=== PATIENT | female | born 1940 | race Caucasian/White ===

== ENCOUNTER 2025-02-18 23:32 | Inpatient (IN) | payer MEDICARE, SELFPAY ==
[2025-02-18 14:54] VITALS: BP 102/65
[2025-02-18 15:57] VITALS: BP 141/77
[2025-02-18 16:00] VITALS: BP 135/71
[2025-02-18 16:29] LABS: Hematocrit 29.7 % (37.0-47.0); Hemoglobin 10.1 g/dL (12.0-16.0); Mean Corp Hgb Conc. 34.0 g/dL (33.0-37.0); Mean Corpuscular Volume 94.9 fL (81.0-99.0); Nucleated Red Blood Cells % 0 %; Platelet Count 337 10^3/uL (130-400); Red Cell Dist. Width 12.5 % (11.5-14.5)
[2025-02-18 16:38] LABS: INR 0.87; PT 12.3 Sec (11.4-14.6)
[2025-02-18 16:45] LABS: ALT (SGPT) < 10 U/L (0-35); AST (SGOT) 16 U/L (14-36); Albumin 4.0 g/dl (3.5-5.0); Alkaline Phosphatase 69 U/L (38-126); Blood Urea Nitrogen 27 mg/dl (7-17); Calcium 9.9 mg/dl (8.4-10.2); Carbon Dioxide 26 mmol/L (22-30); Chloride 102 mmol/L (98-107); Glucose 95 mg/dl (70-99); Potassium 3.3 mmol/L (3.5-5.1); Sodium 136 mmol/L (135-145); Total Protein 6.9 g/dl (6.3-8.2); eGFR > 60.00
[2025-02-18 17:00] VITALS: BP 116/57
[2025-02-18 18:40] VITALS: BP 119/66
--- NOTE | 2025-02-18 22:11 | ED.GENMED ---
History of Present Illness
General
Chief Complaint: Vaginal Bleeding
Source: patient and significant other
Exam Limitations: none
Time Seen by Provider: 02/18/25 15:55
History of Present Illness
History of Present Illness:
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
bleeding. Patient reports that the bleeding started this morning and has been heavy. She reports she has seen some small blood clots. Patient denies abdominal pain. Patient denies lightheadedness, dizziness, chest pain, shortness of breath.
Patient notes that she has been having diarrhea recently. She reports that she is being evaluated for it and stool studies are pending. Patient contacted her oncologist at [facility] [place] Dr. Lucretia Cruz who referred her to the emergency department for
further evaluation and treatment. Patient denies she is anticoagulated. Patient notes that she does have a remote history of hysterectomy.
Past History
Past History
ED Past Medical History: Cancer (peritoneal)
ED Past Surgical History: Cholecystectomy, Gynecological (Hysterectomy) and Orthopedic (TKA)
Social History
Tobacco: Non-smoker
Alcohol: None
Drug: None
Personal:
Review of Systems
Review of Systems
Allergies reviewed?: No
All Other Systems: Not applicable
Constitutional: Reports no symptoms
EENT: Reports no symptoms
Respiratory: Reports no symptoms
Cardiac: Reports no symptoms
ABD/GI: Reports no symptoms; Denies abdominal pain
: Reports bleeding
Musculoskeletal: Reports no symptoms
Skin: Reports no symptoms
Neurological: Reports no symptoms
Endocrine: Reports no symptoms
Hematologic/Lymphatic: Reports no symptoms
Psychiatric: Reports no symptoms
Phy Exam
General Physical Exam
General Presentation: well appearing and no apparent distress
General Skin: warm and dry
General Habitus: normal
General Mental: alert
General Hydration: appears well hydrated
ENT Exam
ENT Exam: EOMI, pharynx normal, neck supple and normocephalic
Eye Exam
Eye Exam: PERRL, cornea clear and conjunctiva normal
Cardiovascular Exam
Cardiovascular Exam: regular rate/rhythm, no edema, no murmur and normal peripheral pulses
Pulmonary Exam
Pulmonary Exam: lungs clear, no respiratory distress, no rales, no crackles, no rhonchi, no stridor, no wheezing and no cough
Gastrointestinal Exam
Gastrointestinal Exam: normal bowel sounds, non tender, soft, no organomegaly, no pulsatile mass and non distended
Genitourinary Exam Female
Exam Female: other (moderate vaginal bleeding, no blood clots noted)
Neurological Exam
Neurological Exam: alert, oriented x3, no motor deficits and speech normal
Musculoskeletal Exam
Musculoskeletal Exam: full ROM and no edema
Skin Exam
Skin Exam: normal color, warm/dry, no rash and no petechia
Psychiatric Exam
Psychiatric Exam: normal mood/affect
Course
Orders/Labs/Results
Orders:
Orders
02/18/25 16:14
Type And Crossmatch [Type+Screen] Urgent
Complete Blood Count/With Diff Urgent
Comprehensive Metabolic Panel Urgent
02/18/25 16:16
Prothrombin Time Urgent
02/18/25 17:23
ABO2 Urgent
BBK Wristband Number:
Associate notified that ABO2 has been ordered: [id number]
Date: 02/18/25
Time: 16:47
Data Services Developer ID: [id number]
02/18/25 17:29
CT Abd/pelvis W Iv Cont Urgent
Comment:
Reason For Exam: ovarian/peritoneal ca hx hysterectomy, vag bleed
Abnormal Lab Results
02/18/25
16:14
RBC 3.13 L 10^6/uL
(4.20-5.40)
Hgb 10.1 L g/dL
(12.0-16.0)
Hct 29.7 L %
(37.0-47.0)
MCH 32.3 H pg
(27.0-31.0)
Absolute Lymphs (auto) 0.2 L 10^3/uL
(1.2-3.4)
Neutrophils % 87.6 H %
(42.2-75.2)
Lymphocytes % 3.2 L %
(20.5-51.1)
Potassium 3.3 L mmol/L
(3.5-5.1)
BUN 27 H mg/dl
(7-17)
02/18/25 16:14
02/18/25 16:14
Vital Signs
Initial and Last Documented VS:
Initial Vital Signs
Temp Pulse Resp BP Pulse Ox
98.0 F 106 16 102/65 99
02/18/25 14:54 02/18/25 14:54 02/18/25 14:54 02/18/25 14:54 02/18/25 14:54
Last Documented Vital Signs
Temp Pulse Resp BP Pulse Ox
98.0 F 99 15 119/66 98
02/18/25 14:54 02/18/25 18:45 02/18/25 18:45 02/18/25 18:40 02/18/25 22:12
*Pulse Oximetry
SaO2: 98
Oxygen Mode of Delivery: Room air
Patient hypoxic: no
*Critical Care Note
Total Time (30-74mins, 75-104mins- exclusive of procedures): Not Applicable
Update Note
Update Note:
Patient is an 84-year-old female with past medical history of peritoneal cancer for which she sees oncology at [place] who presents to the emergency department for evaluation of vaginal bleeding which she describes as heavy for the past day. Patient
denies abdominal pain, lightheadedness, dizziness. On arrival, patient's vital signs are stable, she is afebrile. On exam, patient is well-appearing, she is in no acute distress, she has no significant abdominal tenderness, she has moderate
vaginal bleeding without passage of clots. Labs were obtained and are notable for a hemoglobin of 10.1, mild hypokalemia to 3.3, mildly elevated BUN of 27, the remainder of the patient's labs are nonactionable. CT of the abdomen and pelvis does
demonstrate a large complex pelvic mass with invasion into the bladder and rectum. I am suspicious that this is related to the patient's vaginal bleeding today. I had a very long conversation with the patient and her regarding whether the
patient would like to be transferred to [facility] [place] or stay and be admitted to [facility]. Patient and her would prefer to be admitted to [facility]. Will admit for oncology as well as likely gynecological oncology consultations.
Patient signed out to the hospitalist without complication.
ED Attending Note
-
Portions of this chart may have been created with voice recognition software.� Occasional wrong word or��sound alike� substitutions may have occurred due to the inherent limitations of voice recognition software.
Discharge Plan
Departure
Patient Disposition: Admit
Date of Disposition: 02/18/25
Time of Disposition: 22:15
Presentation/result/management discussed w/ accepting MD/DO: Hospitalist
Patient with high blood pressure during this ER visit?: No
Condition: Fair
Covid-19: Not Applicable
Discharge Problem:
Abnormal vaginal bleeding, Pelvic mass
Referrals:
Silviano Amor MD [Family Provider, Internal Medicine]
Interventions
Interventions:
*General Assessment Last Done: 02/18/25 16:38
*Neglect/Abuse Screening Last Done: 02/18/25 16:21
*ED- Fall Risk Assessment Last Done: 02/18/25 16:38
*ED COVID-19 Vaccine History Last Done: 02/18/25 16:38
ED-Female Genitourinary Assessment Last Done: 02/18/25 16:20
Discharge Date and Time
Print Language: SYRIAN
--- NOTE | 2025-02-18 23:31 | HPS.HSE ---
Family Physician
-
Family Physician: Silviano Amor
Chief Complaint
-
Vaginal Bleeding
History of Present Illness
Patient is an 84y F with PMH significant for peritoneal / ? ovarian carcinoma who has been on treatment and followed at [place] for the past 8 years who presents to ED complaining of vaginal bleeding. History obtained from patient and her .
Patient reports significant bleeding from the vaginal area over the past 2 days. She estimates using about 8 pads per day. She also notes grossly bloody appearing urine. She reports intermittent, crampy lower abdominal pain - though none today /
at present. She denies any fevers / chills. No N/V.
Patient is currently taking cyclophosphamide daily for treatment of her peritoneal carcinomatosis. Patient / state that she had recent imaging at [place] about 3-4 weeks ago which was reportedly 'stable'.
Patient states that she has had issues with urinary and fecal incontinence which has been ongoing for about 8-12 months.
She states that she was seen by a Colorectal physician ([facility]) 4 days ago for constipation and she had no bleeding noted at that time.
Medical History
Past Medical History
Past Medical History: Reports Other
Additional Past Medical History:
Peritoneal Carcinomatosis / ? Ovarian Cancer on Treatment x 8 years
Diverticular Disease
Past Surgical History: Reports Other
Additional Past Surgical History:
TKA
Hysterectomy
Cholecystectomy
Partial Bowel Resection
Social History
Tobacco: Non-smoker
Alcohol: None
Drug: None
Personal:
Living: With Family
Family History
Family History: Not pertinent
Allergies / Home Medications
Allergies reflects when Allergies were last updated in [facility].
Home Medications with original date entered in Yo
Allergy/Medication List:
Patient does not know her current medications.
She has pills with her in a pill minder - but no Rx bottles or medication list.
If medication reconciliation has not been performed, why?: Medication List N/A
Review of Systems
-
History Source: Patient and Family
A 12 point ROS was completed and negative except as noted: Yes
Constitutional: Reports Fatigue; Denies Fever or Chills
Respiratory: Denies Cough or Trouble Breathing
Cardiac: Denies Chest Pain or Palpitations
Abdomen/GI: Reports Abdominal Pain and Other (fecal incontinence); Denies Nausea or Vomiting
: Reports Incontinence, Bleeding and Other (Vaginal bleeding)
Musculoskeletal: Denies Edema
Neurological: Denies Dizzy or Headache
Physical Exam
Vital Signs
Vital Signs
Temp Pulse Resp BP Pulse Ox
98.0 F 99 15 119/66 98
02/18/25 14:54 02/18/25 18:45 02/18/25 18:45 02/18/25 18:40 02/18/25 22:12
Physical Exam
General: Other (Frail, cachectic 84y F in no acute distress.)
HEENT: Other (Dry MM. Neck supple.)
Respiratory: Clear; No Wheezes, Rales or Rhonchi
Cardiac: S1/S2 and Regular Rhythm; No Murmur
GI: Soft, Non Distended, Normal Bowel Sounds and Other (Firmness in lower abdomen with mild tenderness. No rebound / guarding.)
Musculoskeletal: No Clubbing, No Cyanosis and No Edema
Neuro: AO x 3
Laboratory Results
-
02/18/25 16:14
02/18/25 16:14
Laboratory Results
PT 12.3 Sec (11.4-14.6) 02/18/25 16:16
INR 0.87 02/18/25 16:16
Total Bilirubin 0.5 mg/dl (0.2-1.3) 02/18/25 16:14
AST 16 U/L (14-36) 02/18/25 16:14
ALT < 10 U/L (0-35) 02/18/25 16:14
Alkaline Phosphatase 69 U/L (38-126) 02/18/25 16:14
Impression/Plan
-
A/P: Patient is an 84y F with PMH significant for peritoneal carcinomatosis on chemo and followed at [place] who presents to ED complaining of vaginal bleeding x 2 days.
Peritoneal Carcinomatosis / Ovarian Cancer
Vaginal Bleeding
Acute Blood Loss Anemia secondary to the above
Local Mass Effect with Invasion of Bladder / Rectum
Bilateral Hydronephrosis / Ureteral Obstruction due to Malignancy
Diminished Functional Capacity
- Admit for further evaluation and treatment.
- Patient / family not clear on wishes re: plan of care.
- Has been on palliative treatment for 8 years and now with locally invasive disease and associated complications.
- Will follow H&H and transfuse if Hgb < 7 or hemodynamic instability.
- Will ask [facility] to evaluate and discuss options for intervention / palliation.
- Send for most recent records / treatment plan from [place].
- Follow renal function. Check US in AM.
- ? Perc nephrostomy, ureteral stents, etc if necessary.
- Ongoing discussions with patient / family re: plan of care. Would certainly be hospice appropriate.
- Reviewed transfer to [place] this evening; however, patient and are not amenable to transfer at this time.
- Need formal med rec in the AM and then resume meds if appropriate.
DVT Prophylaxis: SCDs
Code Status: DNR
[2025-02-19] VITALS (10 sets, daily range): BP systolic 101–165; BP diastolic 55–101
--- NOTE | 2025-02-19 01:06 | PTCARENOTE ---
Handoff monitored patient unable to be documented at the time of pt admit. Intervention performed by this RN with witness by Jen Dover RN.
[2025-02-19] MEDS: LR 1000 IV (01:27)
[2025-02-19 01:57] LABS: Hematocrit 25.1 % (37.0-47.0); Hemoglobin 8.9 g/dL (12.0-16.0)
[2025-02-19 06:56] LABS: ALT (SGPT) < 10 U/L (0-35); AST (SGOT) 14 U/L (14-36); Albumin 3.2 g/dl (3.5-5.0); Alkaline Phosphatase 56 U/L (38-126); Blood Urea Nitrogen 24 mg/dl (7-17); Calcium 9.4 mg/dl (8.4-10.2); Carbon Dioxide 28 mmol/L (22-30); Chloride 106 mmol/L (98-107); Glucose 94 mg/dl (70-99); Potassium 3.2 mmol/L (3.5-5.1); Sodium 137 mmol/L (135-145); Total Protein 5.5 g/dl (6.3-8.2); eGFR > 60.00
[2025-02-19 07:41] LABS: Hematocrit 26.4 % (37.0-47.0); Hemoglobin 8.9 g/dL (12.0-16.0); Mean Corp Hgb Conc. 33.7 g/dL (33.0-37.0); Mean Corpuscular Volume 94.3 fL (81.0-99.0); Platelet Count 272 10^3/uL (130-400); Red Cell Dist. Width 12.5 % (11.5-14.5)
--- NOTE | 2025-02-19 08:29 | PTCARENOTE ---
Educated patient and spouse on NPO status. Pt and spouse stated that she had most of her tests and she should be allowed to eat. Again attempted to educate and patient's spouse stated 'well I'm just going to let her eat.' RN advised to please
cooperate with our care. Spouse asking if ordered ultrasound can be done 'first thing' and can the doctors come see her now. RN advised the doctors will come as their schedules allow. Assessment, care and VS as charted.
--- NOTE | 2025-02-19 09:20 | W.CON.GYNONC ---
Consultation
-
Performing Provider: Scott Valles
Chief Complaint
-
Vaginal bleeding
History of Present Illness
84-year-old woman who is presenting to [facility] with vaginal bleeding. 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 She is under care of Dr. Maria Eugenia Cruz and
medical oncology at [facility]
Patient received carboplatin for 6 cycles September 12, 2001 any 2 through February 08, 2022.
Patient was on maintenance letrozole from March 01, 2022 through January 2023 after which she had progression of disease
Patient received trametinib January 16, 2023 through February 24, 2023, this was stopped due to adverse effects and intolerance
February 25, 2023 she resumed letrozole. Until early 2023.
November 2023 she resumed trametinib 0.5 mg daily stopped March 26.
Patient had progression of disease in mediastinum, received palliative radiation to chest nodes over 12 days in May 2024. Patient had a visit with Dr. Cruz January 21, 2025, she has been on metronomic oral cyclophosphamide 50 mg daily. She is
complaining of many issues including lower abdominal pain cramping, taking tramadol twice a day. She has a prescription for muscle relaxant for fibromyalgia and declines a trial of Flexeril. Patient has had stable dysphagia to liquids and has been
evaluated in [place] with modified barium swallow, showing mild to moderate oral and pharyngeal dysphagia as well as apparent esophageal component. She has been seen by ENT and gastroenterology at [facility].
Medical History
Past Medical History
Additional Past Medical History:
Hypertension, arthropathy, hypercholesterolemia, frequent UTI, allergic rhinitis, squamous cell carcinoma of the skin, palpitations, headache, irritable bowel syndrome, gastroesophageal reflux disease, diverticulitis large intestine status post
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
Additional Past Surgical History:
Past surgical history is significant for [facility] 1985 for menorrhagia and endometriosis, laminectomy L4-L5, cholecystectomy, history of appendectomy, abdominoplasty, breast reduction, colectomy in 2007 for recurrent diverticulitis, cystoscopy 2013 in
2016, abdominal biopsy 2021, EGD 2024, transoral biopsy multiple block procedures 2024, knee replacement surgery August 01
Social History
Unable to obtain full social history at this time due to: Other (Quit smoking 39 years ago she has a 79-ivpy-oyos history of smoking)
Family History
Family History: Other (Maternal breast cancer age 40, daughter with breast cancer age 45, maternal aunt with ovarian cancer, father with prostate cancer)
Allergies
Allergies reflect when allergies were last updated in [facility]. Bee pollen, seasonal allergies, sulfa antibiotics, nitrofurantoin
No Known Allergies Allergy (Unverified 02/18/25 14:57)
Physical Exam
Vital Signs / I&O
Vitals
Temp Pulse Resp BP Pulse Ox
98.6 F 96 14 124/75 96
02/19/25 07:30 02/19/25 08:00 02/19/25 04:00 02/19/25 08:00 02/19/25 08:00
Results
-
02/19/25 06:20
02/19/25 06:20
[facility]
[address] [place] [id number]
[phone]
Patient Name: DELANEY GARG
: 1940
Unit Number: [id number]
Age/Sex: 84/F
Patient
Location: EMR
Order Provider: Kisha Pierce PA-C
Exam Service Date: 02/18/25

Diagnostic Imaging Report
SignedOrder #:[id number]
Exams: CT Abd/pelvis W Iv Cont
PROCEDURES: CT Abd/pelvis W Iv Cont
CLINICAL INDICATION: Ovarian/peritoneal cancer. Hysterectomy. Vaginal bleeding.
TECHNIQUE: A CT examination of the abdomen and pelvis was performed following the administration of nonionic intravenous contrast. Oral contrast was not administered. Coronal and sagittal reformatted images were obtained. Automatic exposure control
radiation dose reduction technology was utilized.
COMPARISON: None.
FINDINGS:
CHEST: Bibasilar scarring and/or atelectasis.
ABDOMEN:
Multiple hepatic cysts. Surgically absent gallbladder. Mild prominence of the extrahepatic bile ducts, likely related to the previous cholecystectomy. 3 cm diverticulum arising from the second portion of the duodenum. The pancreas, spleen, and
bilateral adrenal glands are unremarkable. Right renal cysts with the largest measuring 5.8 cm in the upper pole. Bilateral hydronephrosis, left greater than right. Short segment of tortuous proximal left ureter with urothelial thickening. Bilateral
ureteral dilatation, left greater than right.
Trace abdominal ascites.
3 cm soft tissue nodule with central calcification in the right upper quadrant anterior abdominal wall. Smaller nodules further inferiorly in the right anterior abdominal wall.
The abdominal aorta is normal in caliber and contains moderate calcified atherosclerosis.
Surgically absent appendix. Colonic diverticulosis, without evidence for acute diverticulitis. No bowel obstruction.
PELVIS: Large complex solid and cystic pelvic mass measuring up to 13.8 cm in size, which appears to directly invade the rectum and the urinary bladder. Significant left posterolateral urinary bladder wall thickening and irregular soft tissue
attenuation within the urinary bladder lumen. Postoperative changes of the pelvis with calcifications and suture material. Surgically absent uterus. Soft tissue nodules in the anterior lower abdomen/pelvis with calcifications.
The distal left ureter appears to be obstructed by the pelvic mass. The distal right ureter is obstructed by the urinary bladder wall thickening and soft tissue attenuation in the bladder lumen.
SKELETON: Chronic degenerative changes of the spine, bilateral sacroiliac joints, hips, and symphysis pubis. Mild lumbar dextroscoliosis.
IMPRESSION:
Large complex solid and cystic mass in the left lateral and posterior pelvis in keeping with the provided history of ovarian/peritoneal cancer. Complex examination and direct correlation with the patient's previous outside imaging is recommended.
The mass appears to directly invade the urinary bladder and rectum. Bilateral hydronephrosis, left greater than right, with malignant soft tissue in the pelvis obstructing the bilateral ureters.
Other calcified soft tissue nodules in the anterior lower abdomen/pelvis and in the right upper quadrant abdominal wall probably representing metastatic implants.
Electronically signed by Jeremy Mayo, 02/18/2025 8:53 PM
[employer] Dose Report: Up-to-date CT equipment and radiation dose reduction techniques were employed. CTDIvol: 7.1 - 7.2 mGy. DLP: 681 mGy-cm.
Dictated By: Marah Mayo DO
Dictated Date & Time: 02/18/252036
Impression / Plan
-
According to the impression of Dr. Cruz most recently at the end of January CA125 continues to decline since starting medication and scans have been generally stable. She had a break while she was in [place]. The fatigue is partially attributed to
oral Cytoxan. Plan was to repeat another CT of chest abdomen and pelvis unfortunately we do not have prior imaging to compare this to. As of back then there was no progression of disease. They had lengthy discussion regarding her GI symptoms
which are likely related to radiation to the mediastinum, patient was recommended to increasing omeprazole. As well as consideration of dietary adjustments. She does have some deconditioning and has been referred to physical therapy for lower
extremity strength buildup but she is too weak and fatigued. She also has ongoing incontinence and has been recommended to consider pelvic floor therapy for urinary issues. After an extensive discussion there are no easy fixes for several of these
issues and the patient had requested consultation with palliative care for management of some of the symptoms.
During this admission I do not feel that there is any need for repeat biopsy, if the patient has significant vaginal bleeding causing her anemia. Consideration can be given to palliative radiation to the pelvis. It may be reasonable to request GI
consultation to see whether there is indeed invasion of the colon. Also urology consultation may be needed to assess whether there is involvement of bladder and ureter with pelvic mass. An MRI of the pelvis may be helpful for better visualization
of the extent of disease in the pelvis. Consider consulting radiation oncology after these tests are completed.
--- NOTE | 2025-02-19 10:16 | CM ---
CM following for discharge planning. Pt admitted to IMU with vaginal bleeding, history of ovarian CA treated at [facility].
Pt requesting palliative care consult for symptom management.
Plan: CM will continue to follow to coordinate all discharge planning needs identified during hospitalization.
[2025-02-19] MEDS: KCL 270 MEQ IV (10:32)
[2025-02-19] MEDS: MORPHINE SULFATE 1 MG IV (11:19)
--- NOTE | 2025-02-19 11:20 | CON.ONC ---
Consultation
-
Date Consultation Requested: 02/19/25
Date Consultation Performed: 02/19/25
Requesting Provider: Dr. Eirc Díaz
Performing Provider: Dr. Gris Villalobos
Reason for Consultation: Peritoneal Carcinomatosis, Vaginal Bleeding, Ureteral Obstruction
Impression
Impression
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
vaginal bleeding
anemia
bleeding evaluation in [address] Hughes showed normal [place] and all multimer of Willebrand factor antigen are present in normal amounts, ristocetin cofactor activity, coag factor IX activity, and fibrinogen activity
Plan
Plan
continue cyclophosphamide
recommend direct radiographic comparison to imaging 2-3 weeks ago, current CT on admission w/o comparison
check iron studies
transfuse prn
OP follow up with primary oncologist for further management
Patient History
History of Present Illness
84yo F with papillary serous carcinoma who presented to with vaginal bleeding. She reports significant bleeding for the past 2 days prompting her to seek further evaluation in ER. She also reports intermittent abdominal cramping. Her initial
evaluation was notable for WBC 5.9, Hgb 10.1, platelet count 337,000 with normal PT/INR, renal function, and LFTs. Her rCT ab/pelvis with IVC showed a Large complex solid and cystic mass in the left lateral and posterior pelvis in keeping with the
provided history of ovarian/peritoneal cancer. The mass appears to directly invade the urinary bladder and rectum. Bilateral hydronephrosis, left greater than right, with malignant soft tissue in the pelvis obstructing the bilateral ureters. Other
calcified soft tissue nodules in the anterior lower abdomen/pelvis and in the right upper quadrant abdominal wall probably representing metastatic implants. She has been admitted, started on IVF and electrolyte repletion.
In brief, pt is known to [facility] for management of her papillary serous carcinoma. Her PET at diagnosis showed omental and peritoneal implants. She was initially treated with carbo followed by letrozole maintenance rather than surgery. She
was then treated with trametinib after progression of disease in 2022. She received XRT to chest nodes in May 2024. She has most recently been treated with cyclophosphamide with her [place] medical oncologists, last evaluation 01/21/2025. Her Ca
125 has declined since starting cyclophosphamide and she reports that restaging done several weeks ago was 'stable.'
She reports hematoma following breast reduction and bowel resection. She had 2 children w/o bleeding complications. She also had other surgeries without bleeding complications including ELICIA. Her bleeding evaluation in [address] Hughes showed
normal [place] and all multimer of Willebrand factor antigen are present in normal amounts, ristocetin cofactor activity, coag factor IX activity, and fibrinogen activity.
She reports fatigue, dysphagia, and urinary incontinence. She continues to have vaginal bleeding.
Past-Medical/Surgical History
PMH endometriosis, IBS, GERD, recurrent UTIs, osteopenia
PSH hysterectomy for menorrhagia, abdominoplasty, breast reduction, appendectomy, laminectomy L5/S1, cholecystectomy, sigmoid colon resection of recurrent diverticulitis, tonsillectomy, knee replacement
Family breast cancer daughter. maternal family with ovarian and breast cancer. father prostate cancer
Social former smoker, rare ETOH, denies recreational drugs, retired. Lives with
Patient Medication
�Medication �Instructions �Recorded �Confirmed �Last Taken �Type
cyclophosphamide 50 mg capsule 50 mg PO DAILY Cancer 02/19/25 02/19/25 02/18/25 History
diazepam 5 mg tablet 5 mg PO TIDPRN PRN anxiety 02/19/25 02/19/25 Unknown History
fenofibrate 160 mg tablet 160 mg PO DAILY High Cholesterol 02/19/25 02/19/25 02/18/25 History
methenamine hippurate 1 gram tablet 1 g PO BID Urinary Issue 02/19/25 02/19/25 02/18/25 History
metoprolol succinate 25 mg 12.5 mg PO BID Blood Pressure 02/19/25 02/19/25 02/18/25 History
tablet,extended release 24 hr
omeprazole 20 mg capsule,delayed 20 mg PO BID Gastrointestinal Issue 02/19/25 02/19/25 02/18/25 History
release
ondansetron HCl 8 mg tablet 8 mg PO Q8HPRN PRN nausea 02/19/25 02/19/25 Unknown History
tramadol 50 mg tablet 50 mg PO TIDPRN PRN Fibromyalgia 02/19/25 02/19/25 Unknown History
pain
Active Medications
Generic Name Dose Route Start Last Admin
Trade Name Freq PRN Reason Stop Dose Admin
Acetaminophen 650 mg 02/19/25 01:11
Acetaminophen 325 Mg Tablet PO 03/19/25 01:10
Q4HPRN PRN
Mild Pain / Temp > 101
Diazepam 5 mg 02/19/25 10:36
Diazepam 5 Mg Tablet PO 03/19/25 10:35
TIDPRN PRN
anxiety
Fenofibrate 145 mg 02/20/25 08:00
Fenofibrate 145 Mg Tablet PO 03/20/25 07:59
DAILY NAHUN
Hydromorphone HCl 0.5 mg 02/19/25 01:11
Hydromorphone 0.5 Mg/0.5 Ml Syringe IV 03/05/25 01:10
Q4HPRN PRN
Severe Pain
Lactated Ringer's 1,000 mls @ 100 mls/hr 02/19/25 01:11 02/19/25 01:27
Lr IV 1,000 mls
.Q10H NAHUN Administration
Potassium Chloride 40 meq/ 270 mls @ 67.5 mls/hr 02/19/25 08:25 02/19/25 10:32
Sodium Chloride IV 02/19/25 12:24 270 mls
NOW STA Administration
Methenamine Hippurate 1 gram 02/19/25 20:00
Methenamine Hippurate 1 Gram Tablet PO
BID NAHUN
Metoprolol Succinate 12.5 mg 02/19/25 20:00
Metoprolol 25 Mg Extended Release Tablet PO 03/19/25 19:59
BID NAHUN
Ondansetron HCl 4 mg 02/19/25 01:11
Ondansetron 4 Mg/2 Ml Vial IV 03/19/25 01:10
Q6HPRN PRN
nausea and vomiting
Pantoprazole Sodium 40 mg 02/20/25 08:00
Pantoprazole 40 Mg Delayed Release Tablet PO 03/20/25 07:59
DAILY NAHUN
Tramadol HCl 50 mg 02/19/25 10:36
Tramadol Hcl 50 Mg Tablet PO 03/19/25 10:35
TIDPRN PRN
Fibromyalgia pain
Review of Systems
-
ROS is notable for HPI, otherwise negative
Physical Exam
-
General: No Apparent Distress
HEENT: Moist Mucous Membranes; Negative Jaundice
Pulmonary: Other (unlabored)
GI: Soft
Extremities: Pulses Present
Skin: Warm
Psych: Calm
Labs
Lab Results
WBC 4.4 10^3/uL (4.8-10.8) L 02/19/25 06:20
RBC 2.80 10^6/uL (4.20-5.40) L 02/19/25 06:20
Hgb 8.9 g/dL (12.0-16.0) L 02/19/25 06:20
Hct 26.4 % (37.0-47.0) L 02/19/25 06:20
MCV 94.3 fL (81.0-99.0) 02/19/25 06:20
MCH 31.8 pg (27.0-31.0) H 02/19/25 06:20
MCHC 33.7 g/dL (33.0-37.0) 02/19/25 06:20
RDW 12.5 % (11.5-14.5) 02/19/25 06:20
Plt Count 272 10^3/uL (130-400) 02/19/25 06:20
MPV 10.1 fL (7.4-10.4) 02/19/25 06:20
Abs Immat Gran (auto) 0.0 10^3/uL (0-0.05) 02/18/25 16:14
Absolute Neuts (auto) 5.1 10^3/uL (1.4-6.5) 02/18/25 16:14
Absolute Lymphs (auto) 0.2 10^3/uL (1.2-3.4) L 02/18/25 16:14
Absolute Monos (auto) 0.5 10^3/uL (0.1-0.6) 02/18/25 16:14
Absolute Eos (auto) 0.0 10^3/uL (0-0.7) 02/18/25 16:14
Absolute Basos (auto) 0.0 10^3/uL (0-0.2) 02/18/25 16:14
Immature Gran % 0.5 % (0-0.5) 02/18/25 16:14
Neutrophils % 87.6 % (42.2-75.2) H 02/18/25 16:14
Lymphocytes % 3.2 % (20.5-51.1) L 02/18/25 16:14
Monocytes % 7.7 % (1.7-9.3) 02/18/25 16:14
Eosinophils % 0.7 % (0-6) 02/18/25 16:14
Basophils % 0.3 % (0-2) 02/18/25 16:14
Creatinine 0.6 mg/dL (0.6-1.0) 02/19/25 06:20
Vital Signs
Vital Signs
Temp Pulse Resp BP Pulse Ox
98.1 F 98 14 141/81 99
02/19/25 11:16 02/19/25 10:01 02/19/25 04:00 02/19/25 10:01 02/19/25 10:00
[2025-02-19] MEDS: VALIUM 5 MG PO (11:55)
[2025-02-19] MEDS: DILAUDID 0.5 MG IV ×2 (11:55→13:29)
[2025-02-19 12:11] LABS: Reticulocyte Count 1.2 % (0.4-2.8)
--- NOTE | 2025-02-19 12:11 | PTCARENOTE ---
Patient given Morphine for burning vaginal pain 10/10 pain. Patient then called 20 minutes later stating she is in 'agony' and she cannot stand this pain anymore. Pt writhing in pain back and forth in pain. TT to [facility] ordered and
given, see MAR. Pt's spouse on the phone with one of their [facility] doctors and stating 'they are not doing anything for her here.'
--- NOTE | 2025-02-19 12:16 | CONS.URO ---
Consultation
-
Date/Time Consultation Performed: 02/19/25 1620
Performing Provider: [place]
Reason for Consultation: ureteral obtruction
Medical History
History of Present Illness
84-year-old woman diagnosed with ovarian cancer 8 years ago, per daughter -- under care of Dr. Josephine Cruz and medical oncology at [facility]
Patient has received several systemic therapies, yet had progression of disease in mediastinum, received palliative radiation to chest nodes in May 2024.
Patient had a visit with Dr. Cruz January 21, 2025,
She is complaining of many issues including lower abdominal pain/cramping and vaginal bleeding.
Past Medical History
Past Surgical History: Other (TKA, Hysterectomy, Cholecystectomy, Partial Bowel Resection)
Allergies/Home Medications
Allergies
Allergy/AdvReac Type Severity Reaction Status Date / Time
No Known Allergies Allergy Unverified 02/18/25 14:57
Home Medications
�Medication �Instructions �Recorded �Confirmed �Type
cyclophosphamide 50 mg capsule 50 mg PO DAILY Cancer 02/19/25 02/19/25 History
diazepam 5 mg tablet 5 mg PO TIDPRN PRN anxiety 02/19/25 02/19/25 History
fenofibrate 160 mg tablet 160 mg PO DAILY High Cholesterol 02/19/25 02/19/25 History
methenamine hippurate 1 gram tablet 1 g PO BID Urinary Issue 02/19/25 02/19/25 History
metoprolol succinate 25 mg 12.5 mg PO BID Blood Pressure 02/19/25 02/19/25 History
tablet,extended release 24 hr
omeprazole 20 mg capsule,delayed 20 mg PO BID Gastrointestinal Issue 02/19/25 02/19/25 History
release
ondansetron HCl 8 mg tablet 8 mg PO Q8HPRN PRN nausea 02/19/25 02/19/25 History
tramadol 50 mg tablet 50 mg PO TIDPRN PRN Fibromyalgia 02/19/25 02/19/25 History
pain
Physical Exam
Vital Signs
Vital Signs
Temp Pulse Resp BP Pulse Ox
98.1 F 98 14 141/81 99
02/19/25 11:16 02/19/25 10:01 02/19/25 04:00 02/19/25 10:01 02/19/25 10:00
Lab / Testing Results
Laboratory Results
02/19/25 06:20
02/19/25 06:20
Physical Exam
elderly, cachectic female
agitated, trying to get OOB to attempt to move bowels -- 2 family members at bedside attempting to restrain/help her
Assessment / Plan
-
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
Pelvic pressure on vagina, bladder and rectum with bleeding per
Rec: patient would be best served by returning to her medical oncologist's hospital; if she elects to remain at [facility], the IRad could be enlisted to place bilateral percutaneous nephrostomy tubes [retrograde ureteraal stents would be difficult to
place and invariable fail in cases of malignant obstruction]
Data Reviewed
-
CT Scan: Image personally visualized and interpreted
Old Records: Reviewed
--- NOTE | 2025-02-19 12:32 | W.PN.HOSP.TC ---
Today's Communication/Plan
-
Transferred to [facility] pending
Continue with pain control
Continue to trend hemoglobin
And stop IV fluids
Diet advanced
Assessment / Plan
Assessment / Plan
General: cachetic, mild distress due to discomfort/pain
HEENT: Other (Dry MM. Neck supple.)
Respiratory: Clear; No Wheezes, Rales or Rhonchi
Cardiac: S1/S2 and Regular Rhythm; No Murmur
GI: Soft, Non Distended, Normal Bowel Sounds
Musculoskeletal: No Clubbing, No Cyanosis and No Edema
Neuro: AO x 3
A/P: Patient is an 84y F with PMH significant for peritoneal carcinomatosis on chemo and followed at [facility] who presents to ED complaining of vaginal bleeding x 2 days.
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
Vaginal Bleeding
Acute Blood Loss Anemia secondary to the above
Anemia likely secondary to chemotherapy unclear baseline
Local Mass Effect with Invasion of Bladder / Rectum
Bilateral Hydronephrosis / Ureteral Obstruction due to Malignancy
Diminished Functional Capacity
- Has been on palliative treatment for 8 years and now with locally invasive disease and associated complications.
- Will follow H&H and transfuse if Hgb < 7 or hemodynamic instability. Current Hgb at 8.9.
- Send for most recent records / treatment plan from [facility].
- ? Perc nephrostomy, ureteral stents, etc if necessary. Urology also consulted. Fortunately creatinine at 0.6.
- Discussed case with patient in detail with Dr. Scott Valles on 02/19 -and patient might require palliative radiation to stop further bleeding. No acute intervention would be performed by him to stop bleeding surgically. Could be tumor invasion
causing the bleeding and may need inpatient radiation which unfortunately will require higher level of care..
- Above discussion was discussed with patient, spouse and daughter all in agreement for transfer. Patient was accepted by Dr. Valenzuela for transfer. Transfer paperwork on chart. Excepted as emergent transfer.
- Patient case was also discussed with her primary oncologist Dr. Cruz on 02/19. Continue with symptomatic management. Palliative radiation might help. Family deciding currently of palliative radiation versus taking patient home on hospice
for pain control however, has not made decision. Will continue with current plan of awaiting transfer to [facility].
- Will adjust pain medication. Oxy for moderate. Dilaudid for severe pain.
- Continue to trend hemoglobin.
- Continue with PPI twice daily.
Severe anxiety
- On diazepam 5 mg 3 times daily as needed
Hyperlipidemia
-On fenofibrate
Primary hypertension
-Continue with Toprol with hold parameters
Hypokalemia
-IV KCL with discomfort.
-replete po
Underweight
-encourage po intake
Irritable bowel syndrome
Diverticulitis status post sigmoid colon resection
Fibromyalgia
Dysphagia
Dysphonia
Continue with PPI twice daily
Continue with Pepcid
DVT Prophylaxis: SCDs in setting of vaginal bleeding
Code Status: DNR
Overall prognosis guarded
Discussed multiple times with patient's spouse and daughter for prolonged period of time.
I spent a total of 120 minutes with the patient or on the floor. More than 50% of this time involved multiple discussion with specialty, family and coordination of care.
Anticipated Discharge: > 48 hours
Subjective/Interval History
-
Date of Service: February 19, 2025
Patient remains with vaginal bleeding
Also stating of burning sensation in the groin region
Objective Data
-
Labs:
Laboratory Results
02/19/25 02/19/25
01:46 06:20
WBC 4.4 L
Hgb 8.9 L 8.9 L
Hct 25.1 L 26.4 L
Plt Count 272
Sodium 137
Potassium 3.2 L
Chloride 106
Carbon Dioxide 28
BUN 24 H
Creatinine 0.6
Glucose 94
Calcium 9.4
Total Bilirubin 0.4
AST 14
ALT < 10
Alkaline Phosphatase 56
Vital Signs:
Vital Signs
Temp Pulse Resp BP Pulse Ox
98.1 F 106 14 141/81 99
02/19/25 11:16 02/19/25 12:00 02/19/25 04:00 02/19/25 10:01 02/19/25 10:00
--- NOTE | 2025-02-19 12:42 | PTCARENOTE ---
Patient's spouse came to nurses station to express that he would like to speak to the hospitalist again. He is not sure that he wants to send the patient to [place] and also wants to discuss hospice. made aware and advised he will be back up
but it will be a little bit. Updated spouse and he stated well 'I have a problem with a little bit, I have decisions to make.' Again, reemphasized to spouse that the doctor will be up when he can.
[2025-02-19 12:49] LABS: Iron 74 ug/dl (37-170); Total Iron Binding Capacity 234 ug/dl (265-497)
[2025-02-19 13:12] LABS: Ferritin 342.0 ng/ml (11.1-264.0)
[2025-02-19] MEDS: DILAUDID 1 MG IV ×4 (14:31→23:18)
[2025-02-19] MEDS: LR IV (14:45)
[2025-02-19] MEDS: ZOFRAN 4 MG IV (16:24)
--- NOTE | 2025-02-19 17:07 | PTCARENOTE ---
Patient's spouse spoke to oncology team at [facility] again and now is agreeable to hospice. TT to and made aware.
--- NOTE | 2025-02-19 17:11 | W.PN.UPDATE ---
Update Note
Progress Note Update
Discussed with patient and spouse once again in details. Also discussed with patient oncologist Dr. Cruz once again in details. Spouse has decided after discussing with patient and family to transition towards hospice. In the interim spouse
agreed for patient to be comfortable and agreed for pain medication. Patient remains in significant discomfort from tumor related cancer pain and wants the patient to be comfortable. Spouse does not want patient to be transferred to [facility]
[place] for further aggressive treatment and management. Spouse also relayed that information to patient primary oncologist Dr. Cruz who was also in agreement for patient to be transition towards hospice. Hospice has been consulted.
Transfer center called and was was updated to cancel transfer. In the interim comfort measure orders were ordered. DC labs.
[2025-02-19] MEDS: VALIUM INJECTION 2 MG IV (23:07)
[2025-02-19] MEDS: DESENEX/MITRAZOL/ZEASORB 1 APPLIC TOPICAL (23:25)
[2025-02-20] MEDS: DILAUDID 1 MG IV ×5 (01:53→10:42)
[2025-02-20] MEDS: ATARAX 10 MG PO (01:56)
--- NOTE | 2025-02-20 06:01 | W.PN.GYNONC ---
Today's Communication
-
transition to hospice care at home
Impression / Plan
-
According to the impression of Dr. Cruz most recently at the end of January CA125 continues to decline since starting medication and scans have been generally stable. She had a break while she was in [place]. The fatigue is partially attributed to
oral Cytoxan. Plan was to repeat another CT of chest abdomen and pelvis unfortunately we do not have prior imaging to compare this to. As of back then there was no progression of disease. They had lengthy discussion regarding her GI symptoms
which are likely related to radiation to the mediastinum, patient was recommended to increasing omeprazole. As well as consideration of dietary adjustments. She does have some deconditioning and has been referred to physical therapy for lower
extremity strength buildup but she is too weak and fatigued. She also has ongoing incontinence and has been recommended to consider pelvic floor therapy for urinary issues. After an extensive discussion there are no easy fixes for several of these
issues and the patient had requested consultation with palliative care for management of some of the symptoms.
During this admission I do not feel that there is any need for repeat biopsy, if the patient has significant vaginal bleeding causing her anemia. Consideration can be given to palliative radiation to the pelvis. It may be reasonable to request GI
consultation to see whether there is indeed invasion of the colon. Also urology consultation may be needed to assess whether there is involvement of bladder and ureter with pelvic mass. An MRI of the pelvis may be helpful for better visualization
of the extent of disease in the pelvis. Consider consulting radiation oncology after these tests are completed.
02/20/2025
I had a lengthy conversation with Dr Cruz her Medical Oncologist at [facility] and she also has discussed the patient's options with her .It appears that patient and her are choosing a more palliative approach going forward and want
to avoid any aggressive treatments and measures.
They are transitioning to hospice at home at this time.
They are aware of what options are potentially available to them
I appreciate the opportunity to see her and participate in some of her care.
Scott Valles MD
[facility]
[phone]
Subjective / Interval History
-
patient remains in some pain and continues to have spotting per vagina
options of treatments including aggressive and palliative approaches have been reviewed
Objective Data
-
Lab Results:
02/19/25 20:00
02/19/25 06:20
Physical Exam
Vital Signs / I&O
Vitals
Temp Pulse Resp BP Pulse Ox
97.9 F 106 16 129/73 96
02/19/25 20:16 02/19/25 20:16 02/19/25 20:16 02/19/25 20:16 02/19/25 21:59
[2025-02-20] MEDS: VALIUM INJECTION 2 MG IV ×3 (06:04→11:30)
[2025-02-20] MEDS: HALDOL 1 MG IV (06:48)
--- NOTE | 2025-02-20 07:27 | W.PN.URO.CBU ---
Today's Communication / Plan
-
with move to palliative care, will sign off
Assessment / Plan
-
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
Pelvic pressure on vagina, bladder and rectum with bleeding per
Diagnosis
-
Date of Service: February 20, 2025
-
Patient Diagnosis:
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
Pelvic pressure on vagina, bladder and rectum with bleeding per
Objective
-
Vital Signs
Temp Pulse Resp BP Pulse Ox
97.9 F 106 16 129/73 96
02/19/25 20:16 02/19/25 20:16 02/19/25 20:16 02/19/25 20:16 02/19/25 21:59
Intake and Output
02/19/25 02/20/25 02/21/25
06:59 06:59 06:59
Intake Total 120 / 120
Balance 120 / 120
Intake:
Oral fluids 120 / 120
Laboratory Results
02/19/25 20:00
02/19/25 06:20
Physical Exam
-
General - well developed, well nourished, no acute distress
Chest - clear bilaterally
Abdomen - soft, non-tender, positive bowel sounds, no CVAT, no incisional pain or distention
Genitalia - normal
Rectal - normal
Skin - warm & dry with no rash
Neuro - AOx3, no motor deficits
Extremities - no clubbing, no cyanosis, no edema
Incision - clean, dry
Dressing - clean, dry, intact
[2025-02-20 07:39] VITALS: BP 143/75
[2025-02-20] MEDS: DESENEX/MITRAZOL/ZEASORB 1 APPLIC TOPICAL (07:57)
--- NOTE | 2025-02-20 08:41 | HOSPNOTE ---
Addendum entered by Charu Rose RN 02/20/25 09:11:
After speaking with Primary RN, Spouse, and attending, we will be admitting patient inpatient hospice today.
Original Note:
Referral received. Patient address is out of our service area. Will give [facility] a notification that this referral is coming and if possible to sign onto hospice today. CM and Attending updated. Hospice will sign off.
--- NOTE | 2025-02-20 10:15 | W.PN.HOSP.TC ---
Today's Communication/Plan
-
dc to [facility]
Assessment / Plan
Assessment / Plan
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
and followed at [place] who presents to ED complaining of vaginal bleeding x 2 days. Patient stated of significant bleeding via vaginal canal. Also complaining of severe pressure in the lower abdomen. Patient was earlier seen by telemedicine by
her primary oncologist who recommended patient to come to the ER. Patient hemoglobin was trended and did not require a transfusion. Discussed case with patient in detail with Dr. Scott Valles on 02/19 -and patient might require palliative radiation
to stop further bleeding. No acute intervention would be performed by him to stop bleeding surgically. Could be tumor invasion causing the bleeding and may need inpatient radiation which unfortunately will require higher level of care.. Above
discussion was discussed with patient, spouse and daughter all in agreement for transfer. Patient was accepted by Dr. Valenzuela for transfer. Patient case was also discussed with her primary oncologist Dr. Cruz on 02/19. Continue with
symptomatic management. Palliative radiation might help. Family deciding currently of palliative radiation versus taking patient home on hospice for pain control however, has not made decision. Will continue with current plan of awaiting transfer
to [facility]. Patient remained with persistent pain. Patient did not want to go any further aggressive procedures, treatment and management. Patient also with bilateral hydronephrosis and ureteral bilaterally obstructed due to malignancy. Urology was
consulted and recommended bilateral nephrostomy tube as a last resort. Patient did not want any aggressive measures. and family knew the option of palliative radiation. Patient remained persistent pain and to make patient comfortable
after discussing among family members and with patient primary oncologist and multiple meetings throughout the day on 02/19/2025 family decided to make patient comfortable. Patient was started on comfort measures on 02/19/2025 with plan to transition
patient to [facility].
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
Vaginal Bleeding
Acute Blood Loss Anemia secondary to the above
Anemia likely secondary to chemotherapy unclear baseline
Local Mass Effect with Invasion of Bladder / Rectum
Bilateral Hydronephrosis / Ureteral Obstruction due to Malignancy
Diminished Functional Capacity
Severe anxiety
Hyperlipidemia
Primary hypertension
Hypokalemia
Underweight
Irritable bowel syndrome
Diverticulitis status post sigmoid colon resection
Fibromyalgia
Dysphagia
Dysphonia
Continue with PPI twice daily
Continue with Pepcid
Plan
Currently on comfort measures with plan to transition to [facility]
More than 30 minutes spent in discharge including
Final examination of the patient
Summarizing hospital stay
Instructions for continuing care to all relevant caregivers
Preparation of discharge records, prescriptions, and referral forms
Total time spent (in minutes): 52
Anticipated Discharge: Today
Subjective/Interval History
-
Date of Service: February 20, 2025
Received pain medication IV related to significant pain. Currently resting in bed comfortably
Objective Data
-
Vital Signs:
Vital Signs
Temp Pulse Resp BP Pulse Ox
97.7 F 111 16 143/75 97
02/20/25 07:39 02/20/25 07:39 02/20/25 07:39 02/20/25 07:39 02/20/25 07:39
I&O
02/19/25 02/20/25 02/21/25
06:59 06:59 06:59
Intake Total 120 / 120
Balance 120 / 120
Physical Exam
-
General: No Apparent Distress and Comfortable
HEENT: Nose Appears Normal and Ears Appear Normal
Respiratory: Non Labored Respirations
Neuro: Other (Sleeping)
Psych: Calm
[2025-02-20] MEDS: ROBINUL 0.2 MG IV (10:42)
--- NOTE | 2025-02-20 11:13 | PTCARENOTE ---
Pt confused and trying to get OOB despite medication regimen. MD made aware, medications adjusted. This RN attempted to place a suresh but was unsuccessful, holding off for now. Education and emotional support provided by this RN, MD, and load haul dump operator
to family. angry at bedside requiring additional education. Decision changed from home with VN to GIP, no new orders at this time.
--- NOTE | 2025-02-20 11:39 | HOSPNOTE ---
Met with patients and daughters to review hospice care, reviewed [facility] vs. home hospice and the hospice philosophy, understanding stated. Hospice consents signed by patients Baljit. Patient to be [facility] hospice for management of severe
pain and agitation requiring IV medications. Patient required seven PRN doses of IV Dilaudid in the past 24 hours and two PRN doses of IV Valium. Reviewed with patients family what changes may occur as patient continues to decline. Patients daughter
Danna requested extra psychosocial support, contacted hospice SW.
--- NOTE | 2025-02-20 11:49 | W.DCSUMMARY ---
Discharge Summary
Discharge Data
Date of Admission: 02/18/25
Date of Discharge: 02/20/25
-
Pending Results: No
Hospital Course
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
followed at [place] who presents to ED complaining of vaginal bleeding x 2 days. Patient stated of significant bleeding via vaginal canal. Also complaining of severe pressure in the lower abdomen. Patient was earlier seen by telemedicine by her
primary oncologist who recommended patient to come to the ER. Patient hemoglobin was trended and did not require a transfusion. Discussed case with patient in detail with Dr. Scott Valles on 02/19 -and patient might require palliative radiation to
stop further bleeding. No acute intervention would be performed by him to stop bleeding surgically. Could be tumor invasion causing the bleeding and may need inpatient radiation which unfortunately will require higher level of care.. Above
discussion was discussed with patient, spouse and daughter all in agreement for transfer. Patient was accepted by Dr. Valenzuela for transfer. Patient case was also discussed with her primary oncologist Dr. Cruz on 02/19. Continue with
symptomatic management. Palliative radiation might help. Family deciding currently of palliative radiation versus taking patient home on hospice for pain control however, has not made decision. Will continue with current plan of awaiting transfer
to [facility]. Patient remained with persistent pain. Patient did not want to go any further aggressive procedures, treatment and management. Patient also with bilateral hydronephrosis and ureteral bilaterally obstructed due to malignancy. Urology was
consulted and recommended bilateral nephrostomy tube as a last resort. Patient did not want any aggressive measures. and family knew the option of palliative radiation. Patient remained persistent pain and to make patient comfortable
after discussing among family members and with patient primary oncologist and multiple meetings throughout the day on 02/19/2025 family decided to make patient comfortable. Patient was started on comfort measures on 02/19/2025 with plan to transition
patient to [facility].
Discharge Plan
-
Patient Disposition: Hospice - Inpatient DH
Discharge Orders:
Discharge Patient (As Directed); Ordered 02/20/25
Ordered By: Guru Salgado
Discharge Date and Time
Print Language: GABONESE
== END 2025-02-20 12:16 | disposition hospice, inpatient (51) | DRG 375 ==
LOC: 2 NORTH 23:32
PROVIDERS: ADMITTING PHYSICIAN Hospitalist; ATTENDING PHYSICIAN Hospitalist; CONSULT PHYSICIAN Obstetrics & Gynecology Gynecologic Oncology; CONSULT PHYSICIAN Specialist; EMERGENCY PHYSICIAN Emergency Medicine; FAMILY PHYSICIAN Internal Medicine; OTHER PHYSICIAN Internal Medicine Hematology & Oncology
DX: C78.6 Secondary malignant neoplasm of retroperitoneum and peritoneum (principal); C56.9 Malignant neoplasm of unspecified ovary; N13.1 Hydronephrosis with ureteral stricture, not elsewhere classified; D62 Acute posthemorrhagic anemia; R64 Cachexia; I10 Essential (primary) hypertension; R13.10 Dysphagia, unspecified; E78.00 Pure hypercholesterolemia, unspecified; F41.9 Anxiety disorder, unspecified; R49.0 Dysphonia; R63.6 Underweight; K58.9 Irritable bowel syndrome, unspecified; M79.7 Fibromyalgia; M41.9 Scoliosis, unspecified; M85.80 Other specified disorders of bone density and structure, unspecified site; N28.1 Cyst of kidney, acquired; R32 Unspecified urinary incontinence; Z66 Do not resuscitate; Z80.3 Family history of malignant neoplasm of breast; Z85.828 Personal history of other malignant neoplasm of skin; Z86.14 Personal history of Methicillin resistant Staphylococcus aureus infection; Z87.440 Personal history of urinary (tract) infections; Z87.891 Personal history of nicotine dependence; Z90.49 Acquired absence of other specified parts of digestive tract; Z90.710 Acquired absence of both cervix and uterus; Z96.659 Presence of unspecified artificial knee joint; Z68.20 Body mass index [BMI] 20.0-20.9, adult; K21.9 Gastro-esophageal reflux disease without esophagitis; Z79.899 Other long term (current) drug therapy
CPT/HCPCS: 74177; 76770; 80053; 82248; 82728; 83540; 83550; 85014; 85018; 85025; 85027; 85045; 85610; 86850; 86900; 86901; 99285; Q9967

== ENCOUNTER 2025-02-20 12:18 | Inpatient (IN) | payer OTHER, SELFPAY ==
--- NOTE | 2025-02-20 11:46 | HOSPNOTE ---
Met with patients and daughters to review hospice care, reviewed [facility] vs. home hospice and the hospice philosophy, understanding stated. Hospice consents signed by patients Baljit. Patient to be [facility] hospice for management of severe
pain and agitation requiring IV medications. Patient required seven PRN doses of IV Dilaudid in the past 24 hours and two PRN doses of IV Valium. Reviewed with patients family what changes may occur as patient continues to decline. Patients daughter
Danna requested extra psychosocial support, contacted hospice SW.
--- NOTE | 2025-02-20 11:48 | ADM.HSP ---
Admission - Hospice
History of Present Illness
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
followed at [place] who presents to ED complaining of vaginal bleeding x 2 days. Patient stated of significant bleeding via vaginal canal. Also complaining of severe pressure in the lower abdomen. Patient was earlier seen by telemedicine by her
primary oncologist who recommended patient to come to the ER. Patient hemoglobin was trended and did not require a transfusion. Discussed case with patient in detail with Dr. Scott Valles on 02/19 -and patient might require palliative radiation to
stop further bleeding. No acute intervention would be performed by him to stop bleeding surgically. Could be tumor invasion causing the bleeding and may need inpatient radiation which unfortunately will require higher level of care.. Above
discussion was discussed with patient, spouse and daughter all in agreement for transfer. Patient was accepted by Dr. Valenzuela for transfer. Patient case was also discussed with her primary oncologist Dr. Cruz on 02/19. Continue with
symptomatic management. Palliative radiation might help. Will continue with current plan of awaiting transfer to [facility]. Patient remained with persistent pain. Patient did not want to go any further aggressive procedures, treatment and
management. Patient also with bilateral hydronephrosis and ureteral bilaterally obstructed due to malignancy. Urology was consulted and recommended bilateral nephrostomy tube as a last resort. Patient did not want any aggressive measures.
and family knew the option of palliative radiation. Patient remained persistent pain and to make patient comfortable after discussing among family members and with patient primary oncologist and multiple meetings throughout the day on
02/19/2025 family decided to make patient comfortable with comfort measures-starting pain medications intravenously. Patient was started on comfort measures on 02/19/2025. Morphine was started initially however patient pain was not alleviated.
Patient was transition to Dilaudid which seemed to have helped. Patient with persistent pain on Dilaudid as needed pushes. agreed for patient to be transition to infusion as patient with severe persistent pain which is unable to be
controlled with as needed IV medication.
Reason for Hospice Admission
[facility]
Review of Systems
Unable to obtain full review of systems at this time due to: Acuity
Physical Exam
General: Comfortable
Respiratory: Non Labored Respirations
GI: Nondistended
Neuro: Other (sleeping )
Psych: Calm
Assessment/Medication Plan
Impression
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
Vaginal Bleeding
Acute Blood Loss Anemia secondary to the above
Anemia likely secondary to chemotherapy unclear baseline
Local Mass Effect with Invasion of Bladder / Rectum
Bilateral Hydronephrosis / Ureteral Obstruction due to Malignancy
Diminished Functional Capacity
Severe anxiety
Hyperlipidemia
Primary hypertension
Hypokalemia
Underweight
Irritable bowel syndrome
Diverticulitis status post sigmoid colon resection
Fibromyalgia
Dysphagia
Dysphonia
Continue with PPI twice daily
Continue with Pepcid
Plan
Transition patient to hydromorphone infusion with boluses protocol
Patient pain was not controlled with IV as needed medication
Family agreed with infusion protocol
Valium as needed
Haldol for agitation
Antinausea meds
DVT prophylaxis none as hospice
DNR
Case was discussed with patient spouse daughter and granddaughter at bedside in details
Also discussed case with patient oncologist Dr. Cruz once again on 02/21/2024
--- NOTE | 2025-02-20 12:41 | CM ---
Reviewed the chart notes. Patient has transitioned into [facility] today. CM continues to be available to patient/family.
Plan: [facility].
[2025-02-20] MEDS: VALIUM INJECTION 2 MG IV ×3 (13:16→20:46)
[2025-02-20] MEDS: DILAUDID 50 IV (13:43)
[2025-02-20] MEDS: HALDOL 1 MG IV (14:30)
[2025-02-20 15:18] VITALS: BP 143/75
--- NOTE | 2025-02-20 15:24 | HOSPNOTE ---
THERAPY DIRECTOR VISITED 84 YEAR OLD PATIENT TO CONDUCT INITIAL PATROL MOTHER ASSESSMENT AND TO PROVIDE PSYCHOSOCIAL SUPPORT. PATIENT RECENTLY ADMITTED ONTO HOSPICE SERVICES AND [facility] LEVEL OF CARE WITH THE PRIMARY DIAGNOSIS OF OVARIAN CANCER. NURSE
REPORTED PATIENT MEDICATIONS ADMINISTERED VIA IV AND DRIP, RESTING, AND FAMILY PRESENT AT BEDSIDE. PATROL MOTHER GREETED PATIENT AND PATIENT'S FAMILY WHILE ENTERING THE ROOM. PATIENT ASLEEP AND APPEARS TO BE RESTING COMFORTABLY, NO SIGNS OF PAIN AND/OR
DISTRESSED OBSERVED. PATIENT'S SPOUSE BRITTA HANDLEY' INTRODUCE HIMSELF AND REQUESTED PATROL MOTHER WHISPER PATIENT WAS ASLEEP. PATROL MOTHER EXPLAIN TO FAMILY THE PURPOSE OF WEIGHER OPERATOR VISIT, PATIENT'S DAUGHTER MAKAYLA AND PATIENT'S SPOUSE ASKED TO SPEAK WITH PATROL MOTHER IN
THE FAMILY ROOM. SPOUSE REPORTED HE DIDN'T WANT PATIENT TO WAKE UP AND BECOME AGITATED. MAKAYLA BECAME EMOTIONAL AND REPORTED SHE'S OKAY BUT SHE'S WORRIED ABOUT HER FATHER. SPOUSE BECAME EMOTIONAL AND SAID HE WANTED PATIENT TO COME HOME BECAUSE HE
DIDN'T WANT HER TO IN THE HOSPITAL, BUT HE KNOWS NOW THAT THIS IS WHERE PATIENT BELONGS. SPOUSE REPORTED HE AND PATIENT HAVE BEEN FOR 62 YEARS. PATIENT WAS A SCALER PRIOR TO HAVING HER 2 DAUGHTERS MAKAYLA AND ESTELITA. SHE HAS
6 GRANDCHILDREN AND A GREAT GRANDCHILD ON THE WAY. SPOUSE REPORTED HIS FAMILY IS CARING AND SUPPORTIVE AND THEY APPEARED TO BE COPING APPROPRIATELY. MAKAYLA REPORTED PATIENT IS FAMILY ORIENTED AND SHE ENJOYED BEING WITH HER FAMILY. MAKAYLA REPORTED
PATIENT NEVER LEFT THE HOUSE WITHOUT HER HAIR AND MAKEUP DONE. MAKAYLA REPORTED PATIENT HAS 1 SISTER, HOWEVER THEY ARE ESTRANGED. PATIENT IS JAIN, WISHES ARE TO BE BURIED, AND FAMILY IS [facility] IN [place], [place]. PRAYER OFFERED
SPOUSE DECLINED. MUCH EMOTIONAL SUPPORT PROVIDED
PATIENT MEETS [facility] FOR SN ASSESSMENT, MANAGEMENT OF SEVERE PAIN, AND AGITATION REQUIRING IV MEDICATIONS THAT COULD NOT BE MANAGED AT HOME AND/OR IN AN OUTPATIENT SETTING. DISCHARGE PLANNING CONTINUES.
PATROL MOTHER TO CONDUCT VISITS ONCE A WEEK WHILE ON [facility] LEVEL OF CARE TO PROVIDE SUPPORTIVE SERVICES AND TO MONITOR FOR ADDITIONAL SERVICES.
[2025-02-20] MEDS: DILAUDID 0.25 MG IV ×2 (20:45→22:28)
[2025-02-21] MEDS: DILAUDID 0.25 MG IV ×4 (03:52→23:46)
[2025-02-21] MEDS: VALIUM INJECTION 2 MG IV (03:52)
--- NOTE | 2025-02-21 08:00 | PTCARENOTE ---
Pt's has been refusing for staff to turn pt or even elevate her hips. He is fearful of inducing more pain with movement. So him and his daughter stated that do not want her moved. We only want comfort for her. 'She looks very
comfortable,' you do not need to move her. We informed them of the possiblity of damage to her skin from constant pressure and she needs to be turned to prevent that skin breakdown. We ensure him that she can be medicated before we even turn her
to help with pain mgt. He was adament that she not be touched, even with VSS and giving her relief from her temp by giving her Tylenol supp. Both the and daughter declined me from giving her Tylenol for her temp or turning her. At times I
tried to tuck a pillow under her hip areas to help prevent skin breakdown to some degree,
The of the patient is having a very difficult time in accepting her decline and things that she is going to rebound. Many questions were answered for him and the daughter as well as hospice teaching. This information has been discussed
with the RN who is professional nursing assistant for hospice. Will cont to monitor. Pt is currently on an Acumax mattress.
[2025-02-21 08:06] VITALS: BP 84/48
--- NOTE | 2025-02-21 10:04 | HOSPNOTE ---
Received report from facility nurse Rupali.Patients family very surpportive but declining care for sangita at times.Declined VS,turning and repositioning at times .They just want her to be peaceful and not to be bothered/Touched.IV Hydromorphine
infusing with out difficulty .PRN Valium at 4 am and Hydromorphine ivp for breakthrough at 6 AM.No intake .No out put.Temp this am 100.8. AX .family declined tylenol suppository. Received patient in
room with many visitors.Me and stepped outside to chat.He was tearful and pleasant but declined me to do VS,evaluation ect.Reports just had all these things done.Last documented vs in chart T- 100.8 F ax , p 115, bp 84/48 at 8:06
am.Hospitalist arrived and spoke to Mr Blancas during this time.Emotional support provided to .Received patient in bed.Unresponsive. Respirations even and unlabored at this time.No secreations.appears calm.She did open her eyes briefly when
spoke to her.Was able to obtain temp( temporal) with husbands permission .97.9 at this time.Declined any further eval or touching of patient.Offered to provide oral care. again declined.Reinforced we are only offering/trying to
provide comfort measures for patient.Much emotional support provided.
--- NOTE | 2025-02-21 10:30 | W.PN.HSP.1 ---
Assessment / Plan
-
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
Vaginal Bleeding
Acute Blood Loss Anemia secondary to the above
Anemia likely secondary to chemotherapy unclear baseline
Local Mass Effect with Invasion of Bladder / Rectum
Bilateral Hydronephrosis / Ureteral Obstruction due to Malignancy
Diminished Functional Capacity
Severe anxiety
Hyperlipidemia
Primary hypertension
Hypokalemia
Underweight
Irritable bowel syndrome
Diverticulitis status post sigmoid colon resection
Fibromyalgia
Dysphagia
Dysphonia
Continue with PPI twice daily
Continue with Pepcid
Plan
Continue with hydromorphone infusion with boluses protocol. Remains on step 1.
Patient pain was not controlled with hydromorphone IV as needed medication pushes
Family agreed with infusion protocol
Valium as needed
Haldol for agitation
Antinausea meds
DVT prophylaxis none as hospice
DNR
Discussed with patient in detail
Today's Communication
Continue with hospice measures
Interval History
-
Remains on Dilaudid drip
Spiked fever earlier today
Physical Exam
-
Temp Pulse Resp BP Pulse Ox
100.8 F H 115 16 84/48 92
02/21/25 08:06 02/21/25 08:06 02/21/25 08:06 02/21/25 08:06 02/21/25 08:06
General: No Apparent Distress and Comfortable
Respiratory: Non Labored Respirations
Neuro: Sedated
Psych: Calm
--- NOTE | 2025-02-21 15:20 | CHAP ---
Cuca was sleeping comfortably, non-responsive. Gregorio, one of their daughters and her were present. Vandana shared his deep feelings of sorrow and loss. His daughter described her parents' marriage of 62 years as 'the most bonded ever.'
Applied Biology Professor talked with Gregorio about his thoughts and feelings, and offered understanding and words of comfort. Emotional and spiritual support provided.
[2025-02-21] MEDS: FLUSH (NSS) 2 FLUSH IV (15:25)
[2025-02-21] MEDS: ROBINUL 0.2 MG IV (23:48)
--- NOTE | 2025-02-22 02:31 | PTCARENOTE ---
Addendum entered by Chica Nuñez RN 02/23/25 03:48:
Also, is refusing turning and repositioning on pt, despite education on turning and repositioning.
Original Note:
Pt is inpt. hospice, is @ bedside, he refuses all VS to be performed on his Cuca this shift.
[2025-02-22 07:40] VITALS: BP 106/52
--- NOTE | 2025-02-22 08:00 | PTCARENOTE ---
Today pt was placed on a softcare overlay due to wounds on her sacrum and spine areas. I informed that this will help elevate pressure on her skin on her back, hips, and heels. All areas were placed with foam dressings and a Woc consult
placed. I don't know if pt came into the hospital from [place] with some of these wounds already present. Once again offset pressman was informed of the increase in anxiety pt's is having with her upcoming . He is fearful of leaving her and
is staying overnight. His family is bringing in food for him. He sits by the bed and holds her hand throughout the night. Again instructed to take care of himself and go home to get some rest. That we will take care of her while he is
gone, but he has been refusing.
Today texted clinical documentation manager clergy to come by and talk to pt to provide some emotional support. Also texted clinical documentation manager hospice nurse to inform her of his struggles with her upcoming . Will cont to Monitor.
--- NOTE | 2025-02-22 08:43 | CHAP ---
Called by staff for Cuca's , who is struggling with grief. Cuca was sleeping, non-responsive, and Gregorio was at her side. He shared that he is grateful for all the good times they had together, and for the memories that will live on.
Medical Cash Poster provided emotional and spiritual support, along with a prayer blanket and assurance of our on-going availability.
[2025-02-22] MEDS: DILAUDID 0.25 MG IV ×2 (09:03→16:23)
[2025-02-22] MEDS: FLUSH (NSS) 2 FLUSH IV (09:04)
[2025-02-22] MEDS: DILAUDID 50 IV (09:06)
--- NOTE | 2025-02-22 12:04 | W.PN.HSP.1 ---
Assessment / Plan
-
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
Vaginal Bleeding
Acute Blood Loss Anemia secondary to the above
Anemia likely secondary to chemotherapy unclear baseline
Local Mass Effect with Invasion of Bladder / Rectum
Bilateral Hydronephrosis / Ureteral Obstruction due to Malignancy
Diminished Functional Capacity
Severe anxiety
Hyperlipidemia
Primary hypertension
Hypokalemia
Underweight
Irritable bowel syndrome
Diverticulitis status post sigmoid colon resection
Fibromyalgia
Dysphagia
Dysphonia
Continue with PPI twice daily
Continue with Pepcid
Plan
Continue with hydromorphone infusion with boluses protocol. Remains on step 1.
Patient pain was not controlled with hydromorphone IV as needed medication pushes
Family agreed with infusion protocol
Valium as needed
Haldol for agitation
Antinausea meds
DVT prophylaxis none as hospice
DNR
Discussed with patient , daughter and granddaughter in detail
Today's Communication
Continue with hospice measures
Interval History
-
remains on dilaudid infusion
spiked mild elevated temp earlier but patient looks comfortable
Physical Exam
-
Temp Pulse Resp BP Pulse Ox
100.8 F H 102 15 106/52 94
02/21/25 08:06 02/22/25 07:40 02/22/25 07:40 02/22/25 07:40 02/22/25 07:40
General: No Apparent Distress and Comfortable
Respiratory: Non Labored Respirations
Neuro: Sedated
Psych: Calm
--- NOTE | 2025-02-22 12:49 | HOSPNOTE ---
Patient remains [facility] appropriate level of care for the management of pain. On Dilaudid infusion at 0.3mg/hr with 4 boluses of Dilaudid for pain. Minimally responsive to verbal and tactile stimuli. Respirations shallow, no po intake since .
Spent considerable time talking with family. will not leave hospital and rarely steps out of room. Discussed 3 things that keep people here and possibly needy privacy to pass without family present. can not leave her alone. He
also states he can not give her permission to pass. Discussed ways to state that without says the patient is dying. Adult children and grandchildren present during conversation. Hopefully they can help assist to allow the patient to let go.
He states he sleeps in the chair holding her hand, occasionally letting it go but does not want to leave the chair except to eat in family lounge.
[2025-02-23] MEDS: ROBINUL 0.2 MG IV ×3 (00:01→22:53)
[2025-02-23] MEDS: DILAUDID 0.25 MG IV ×7 (00:47→23:51)
[2025-02-23] MEDS: VALIUM INJECTION 2 MG IV (08:30)
--- NOTE | 2025-02-23 10:34 | W.PN.HSP.1 ---
Assessment / Plan
-
Assessment/plan:
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
Vaginal Bleeding
Acute Blood Loss Anemia secondary to the above
Anemia likely secondary to chemotherapy unclear baseline
Local Mass Effect with Invasion of Bladder / Rectum
Bilateral Hydronephrosis / Ureteral Obstruction due to Malignancy
Diminished Functional Capacity
Severe anxiety
Hyperlipidemia
Primary hypertension
Hypokalemia
Underweight
Irritable bowel syndrome
Diverticulitis status post sigmoid colon resection
Fibromyalgia
Dysphagia
Dysphonia
Continue with PPI twice daily
Continue with Pepcid
Plan
- Continue with hydromorphone infusion with boluses protocol.
- Valium as needed
- Haldol for agitation
- Antinausea meds
DVT prophylaxis none as hospice
DNR
Today's Communication
Continue hospice measures
Interval History
-
Patient appears to be sedated, and not answering questions. Opens eyes to commands.
Review of Systems
-
Unable to obtain full review of systems at this time due to: Other (Sedated)
Physical Exam
-
Temp Pulse Resp BP Pulse Ox
100.8 F H 102 15 106/52 91
02/21/25 08:06 02/22/25 07:40 02/22/25 07:40 02/22/25 07:40 02/23/25 03:39
General: Well Developed, Comfortable and Appears Chronically Ill
Respiratory: Non Labored Respirations
Cardiology: Regular Rhythm and S1/S2
GI: Soft and Nondistended
Neuro: Sedated
--- NOTE | 2025-02-23 11:11 | CHAP ---
Cuca was resting comfortably, eyes open, minimally responsive. No family was present. Diagnostic Imaging Manager offered words of comfort at Cuca's side, then found family members in the family room. They are supporting one another, cherishing the bonds of love.
Diagnostic Imaging Manager provided emotional and spiritual support through presence and dialogue. Will continue support through visits 2x week.
--- NOTE | 2025-02-23 11:16 | W.PN.UPDATE ---
Update Note
Progress Note Update
I saw and evaluated the patient. I reviewed the resident�s note and agree with findings and plan as documented in the resident�s note.
Gen: NAD, appears chronically ill and malnourished/cachectic
CV: tachy, reg rhythm, +S1/S2, no m/r/g.
Resp: CTAB anteriorly, no rales, wheezes, or rhonchi.
Abd: hypoactive BS, soft, NT, ND
Skin: No rashes.
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
-cont inpt hospice care with dilaudid gtt as per protocol
-cont glycopyrrolate/Valium as needed
DNR
[2025-02-23 11:36] VITALS: BP 107/48
--- NOTE | 2025-02-23 12:12 | CM ---
Reviewed the chart notes. Family members present at bedside. CM continues to be available to patient/family.
Plan: Continue with GIP hospice level of care.
--- NOTE | 2025-02-23 12:36 | HOSPNOTE ---
Patient remains inpatient level of hospice care for the management of pain and anxiety that could not be managed in the outpatient setting. Patient is on a Dilaudid drip and has needed ivp doses for breakthrough pain. Patient also needed iv Valium
for anxiety. Patient resting comfortably at time of visit. Met with daughter and . They are tearful. Reviewed that patient will continue to be medicated and able to pass peacefully. Reviewed that we do not have a crystal ball and that patient
will decide her journey. They are thankful and understanding. Emotional support provided. Informal report with OSCAR Valdez, agrees with plan of care. Hospice will visit daily.
--- NOTE | 2025-02-23 13:13 | PTCARENOTE ---
Patient's family refusing VS. Family educated on reasoning for q shift VS with hospice care, however, family still refused. Will pass along to PCT and nightshift nurse.
--- NOTE | 2025-02-23 13:20 | HOSPNOTE ---
HOSPITAL WASTE DISPOSAL ATTENDANT VISITED PATIENT FOR WEEKLY VISIT AND TO PROVIDE SUPPORTIVE SERVICES. NURSE REPORTED MEDICATIONS ADMINISTERED AND PATIENT RESTING. DRESSMAKER OR TAILOR GREETED PATIENT UPON ENTERING HER ROOM, NO RESPONSE AND NO FAMILY MEMBERS AT PATIENT'S
BEDSIDE. PATIENT ASLEEP AND APPEARED TO BE RESTING COMFORTABLY, NO SIGNS OF PAIN AND/OR DISCOMFORT OBSERVED. PRAYER AND EMOTIONAL SUPPORT PROVIDED. DRESSMAKER OR TAILOR VISITED PATIENT'S SPOUSE, DAUGHTERS, MATI, AND GRANDSON IN THE FAMILY ROOM THE MATI WAS WORKING
AND THE OTHERS EATING LUNCH. SPOUSE REPORTED HE'S DOING FINE AND PATIENT IS RECEIVING THE BEST CARE. DRESSMAKER OR TAILOR EXPRESSED HOW PATIENT WAS ASLEEP AND APPEARED TO RESTING COMFORTABLY, NO PAIN, OR DISTRESS, PEACEFULLY. MAKAYLA RESPONDED THAT PATIENT WAS IN
DISTRESS EARLY AND HER DAUGHTERS THEY REQUESTED MORE MEDICATION AND NOW PATIENT IS PEACEFUL. MAKAYLA AND ESTELITA REPORTED THEY DON'T WANT TO DISTURB PATIENT THE FLOOR IS SQUEAKY, MAYBE THEY COULD WALK ON THEIR TIP TOES TO GET TO THE TREATS IN THE
COMFORT BOXES. FAMILY APPEARED TO BE COPING APPROPRIATELY. FAMILY REPORTED THEY DON'T NEED ANYTHING. EMOTIONAL SUPPORT PROVIDED.
PATIENT MEETS [facility] FOR SN ASSESSMENT, MANAGEMENT OF PAIN, AND ANXIETY REQUIRING IV MEDICATIONS THAT COULD NOT BE MANAGED AT HOME AND/OR IN AN OUTPATIENT SETTING. DISCHARGE PLANNING CONTINUES.
DRESSMAKER OR TAILOR TO CONDUCT VISITS ONCE A WEEK WHILE ON GIP LEVEL OF CARE TO PROVIDE SUPPORTIVE SERVICES AND TO MONITOR FOR ADDITIONAL SERVICES.
[2025-02-24] MEDS: ROBINUL 0.2 MG IV ×3 (04:50→20:47)
[2025-02-24] MEDS: DILAUDID 0.25 MG IV ×8 (04:50→23:57)
--- NOTE | 2025-02-24 05:06 | PTCARENOTE ---
Pts refused VS for this shift.
--- NOTE | 2025-02-24 08:16 | W.PN.HSP.1 ---
Assessment / Plan
-
This is a 84-year-old female with a past medical history of peritoneal carcinomatosis, ovarian cancer with metastasis to mediastinum s/p radiation, local mass effect of invasion of bladder/rectum, bilateral hydronephrosis/ureteral obstruction due to
malignancy and diminished functional capacity who is currently on hospice measures.
# Peritoneal carcinomatosis due to ovarian cancer with metastatic disease to the mediastinum
�Continue inpatient hospice measures with Dilaudid gtt. as per protocol
�Continue Valium as needed
�Continue Haldol as needed
�Antinausea medications as needed
DVT prophylaxis: None since patient is on hospice
CODE STATUS: DO NOT RESUSCITATE
Today's Communication
Continue hospice measures
Interval History
-
Patient opens eyes to commands. Not able to answer any questions as she is sedated.
Review of Systems
-
Unable to obtain full review of systems at this time due to: Other (Sedated)
Physical Exam
-
Temp Pulse Resp BP Pulse Ox
100.8 F H 107 15 107/48 97
02/21/25 08:06 02/23/25 11:36 02/22/25 07:40 02/23/25 11:36 02/23/25 11:36
General: No Apparent Distress and Appears Chronically Ill
Respiratory: Clear to Auscultation
Cardiology: Regular Rhythm and S1/S2
GI: Soft, Nondistended and Normal Bowel Sounds
Neuro: Sedated
[2025-02-24] MEDS: VALIUM INJECTION 2 MG IV ×6 (08:17→23:58)
--- NOTE | 2025-02-24 09:12 | W.PN.UPDATE ---
Update Note
Progress Note Update
I saw and evaluated the patient. I reviewed the resident�s note and agree with findings and plan as documented in the resident�s note.
Currently nonverbal.
Gen: NAD, appears chronically ill and malnourished/cachectic
CV: tachy, irreg/irreg, +S1/S2, no m/r/g.
Resp: remains CTAB anteriorly, no rales, wheezes, or rhonchi.
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
-cont inpt hospice care with dilaudid gtt as per protocol
-cont glycopyrrolate/Valium as needed
DNR
[2025-02-24] MEDS: DILAUDID 50 IV (12:21)
--- NOTE | 2025-02-24 13:24 | HOSPNOTE ---
Patient is unresponsive at this time continues on a dilaudid drip for pain management. Patient was incontinent of a large amount of urine was bathed and mouth care performed, family at bedside. Patient will be seen daily.
--- NOTE | 2025-02-24 14:30 | CM ---
Reviewed the chart notes. Patient remains on GIP hospice.
[2025-02-25] MEDS: VALIUM INJECTION 2 MG IV ×2 (05:12→16:37)
[2025-02-25] MEDS: ROBINUL 0.2 MG IV (05:13)
[2025-02-25] MEDS: DILAUDID 0.25 MG IV ×4 (05:13→16:38)
--- NOTE | 2025-02-25 06:13 | PTCARENOTE ---
Pts refused VS for nightshift.
--- NOTE | 2025-02-25 10:05 | W.PN.UPDATE ---
Update Note
Progress Note Update
I saw and evaluated the patient. I reviewed the resident�s note and agree with findings and plan as documented in the resident�s note.
Remains nonverbal.
Gen: NAD, appears chronically ill and malnourished/cachectic
CV: remains tachy, irreg/irreg, +S1/S2, no m/r/g.
Resp: continues to remain CTAB anteriorly, no rales, wheezes, or rhonchi.
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
-cont inpt hospice care with dilaudid gtt as per protocol
-cont glycopyrrolate/Valium as needed
DNR
--- NOTE | 2025-02-25 11:13 | CM ---
Reviewed the chart notes. Spouse at bedside. CM continues to be available to patient/family.
Plan: GIP hospice continues.
--- NOTE | 2025-02-25 11:17 | W.PN.HSP.1 ---
Assessment / Plan
-
This is a 84-year-old female with a past medical history of peritoneal carcinomatosis, ovarian cancer with metastasis to mediastinum s/p radiation, local mass effect of invasion of bladder/rectum, bilateral hydronephrosis/ureteral obstruction due to
malignancy and diminished functional capacity who is currently on hospice measures.
# Peritoneal carcinomatosis due to ovarian cancer with metastatic disease to the mediastinum
�Continue inpatient hospice measures with Dilaudid gtt as per protocol
�Continue Valium as needed
�Continue Haldol as needed
DVT prophylaxis: None since patient is on hospice
CODE STATUS: DO NOT RESUSCITATE
Today's Communication
Continue hospice measures
Interval History
-
Patient is nonverbal. Not responding to commands.
Physical Exam
-
Temp Pulse Resp BP Pulse Ox
100.8 F H 107 15 107/48 97
02/21/25 08:06 02/23/25 11:36 02/22/25 07:40 02/23/25 11:36 02/23/25 11:36
General: Appears Chronically Ill and Cachectic
Neuro: Sedated
--- NOTE | 2025-02-25 12:56 | HOSPNOTE ---
Patient appears imminent. Patient is completely unresponsive but appears comfortable. Continues on the dilaudid drip. Family was not present in the room they were taking a break. Patient will be seen daily by hospice and patient continues to be
inpatient hospice appropriate
[2025-02-25 23:00] VITALS: BP 143/80
[2025-02-26] MEDS: DILAUDID 0.25 MG IV ×6 (03:03→23:43)
[2025-02-26] MEDS: ROBINUL 0.2 MG IV ×4 (04:35→23:40)
--- NOTE | 2025-02-26 05:19 | PTCARENOTE ---
02/26: pt on inpt hospice. pt family educated on turning and medication usage for hospice. pt assessed hourly for changes in respirations or s/s of pain. family stated that pt has not been turned despite refusing care. pt medicated per symptoms.
--- NOTE | 2025-02-26 07:53 | W.PN.HSP.1 ---
Assessment / Plan
-
This is a 84-year-old female with a past medical history of peritoneal carcinomatosis, ovarian cancer with metastasis to mediastinum s/p radiation, local mass effect of invasion of bladder/rectum, bilateral hydronephrosis/ureteral obstruction due to
malignancy and diminished functional capacity who is currently on hospice measures.
Assessment/plan:
# Peritoneal carcinomatosis due to ovarian cancer with metastatic disease to the mediastinum
�Continue inpatient hospice measures with Dilaudid gtt as per protocol
�Continue Valium as needed
�Continue Haldol as needed
DVT prophylaxis: None since patient is on hospice
CODE STATUS: DNR
Today's Communication
Continue hospice measures
Interval History
-
Upon evaluation of patient this morning, patient remains nonverbal.
Review of Systems
-
Unable to obtain full review of systems at this time due to: Other (Patient sedated)
Physical Exam
-
Temp Pulse Resp BP Pulse Ox
98.2 F 107 20 143/80 98
02/25/25 23:00 02/25/25 23:00 02/25/25 23:00 02/25/25 23:00 02/25/25 23:00
General: Appears Chronically Ill and Cachectic
Neuro: Sedated
--- NOTE | 2025-02-26 08:24 | W.PN.UPDATE ---
Update Note
Progress Note Update
I saw and evaluated the patient. I reviewed the resident�s note and agree with findings and plan as documented in the resident�s note.
Remains nonverbal.
Gen: NAD, appears chronically ill and malnourished/cachectic
CV: RRR with frequent premature beats, +S1/S2, no m/r/g.
Resp: CTAB anteriorly, no rales, wheezes, or rhonchi.
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
-cont inpt hospice care with dilaudid gtt as per protocol
-cont glycopyrrolate/Valium as needed
Pt's updated at bedside.
DNR
[2025-02-26] MEDS: DILAUDID 50 IV (15:57)
--- NOTE | 2025-02-26 16:21 | PTCARENOTE ---
tisha roper hung at 1557. remains running at step 1 through R wrist IV. wound care and hygiene done at bedside. family educated on medications, and nonverbal signs of pain/ dyspnea.
--- NOTE | 2025-02-26 18:12 | PTCARENOTE ---
VS refused by family
--- NOTE | 2025-02-26 18:49 | PTCARENOTE ---
Danna Lira (daughter)
[phone] Marlin Montoya (daughter)
okay to give patient information to if calling floor number.
[2025-02-27] MEDS: DILAUDID 0.25 MG IV ×4 (02:50→12:22)
[2025-02-27] MEDS: ROBINUL 0.2 MG IV (06:15)
[2025-02-27] MEDS: TYLENOL/FEVERALL 650 MG RECTAL (08:02)
--- NOTE | 2025-02-27 08:10 | W.PN.UPDATE ---
Update Note
Progress Note Update
I saw and evaluated the patient. I reviewed the resident�s note and agree with findings and plan as documented in the resident�s note.
Remains nonverbal.
Gen: NAD, appears chronically ill and malnourished/cachectic
CV: tachy with occasional premature beats, +S1/S2, no m/r/g.
Resp: CTAB anteriorly, no rales, wheezes, or rhonchi.
Abd: +BS/soft/ND
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
-cont inpt hospice care with dilaudid gtt as per protocol
-cont glycopyrrolate/Valium as needed
DNR
--- NOTE | 2025-02-27 11:12 | CM ---
Reviewed the chart notes. CM continues to be available to patient/family.
Plan: GIP hospice continues.
--- NOTE | 2025-02-27 12:18 | HOSPNOTE ---
Patient continues to be active, temp this am and was given tylenol supp which was able to bring down the fever. Emotional support was provided to family. Pulse is weak and thready. Patient was turned and repositioned mouth care performed. Patient
continues to be inpatient appropriate for pain management requiring a dilaudid drip. Patient will be seen daily.
--- NOTE | 2025-02-27 13:27 | W.PN.DEATH ---
Pronouncement of
-
Called to see patient to pronounce.
No spontaneous heart tones or respirations noted.
Patient not responsive to verbal stimuli.
Patient is pronounced .
Time of : 13:22
Date of : 02/27/25
Cause of : Metastatic ovarian cancer
Family Notified: Yes
--- NOTE | 2025-02-27 14:16 | HOSPNOTE ---
I supported family and they were very grateful for the care that the patient received. [facility] was called by family. Family will take all belongings home.
--- NOTE | 2025-02-27 14:52 | W.DCSUMMARY ---
Discharge Summary
Discharge Data
Date of Admission: 02/20/25
Date of Discharge: 02/27/25
-
Pending Results: No
Hospital Course
Discharging Physician : Dr. John Bass and Dr. Angeli Stokes
Disposition :
Principal Discharge diagnosis : Peritoneal carcinomatosis due to ovarian cancer with metastatic disease to the mediastinum
Chronic Discharge diagnosis :
Vaginal Bleeding
Acute Blood Loss Anemia secondary to the above
Anemia likely secondary to chemotherapy unclear baseline
Local Mass Effect with Invasion of Bladder / Rectum
Bilateral Hydronephrosis / Ureteral Obstruction due to Malignancy
Diminished Functional Capacity
Severe anxiety
Hyperlipidemia
Primary hypertension
Hypokalemia
Underweight
Irritable bowel syndrome
Diverticulitis status post sigmoid colon resection
Fibromyalgia
Dysphagia
Dysphonia
Hospital Course :
84-year-old female with a past medical history of metastatic ovarian cancer status post radiation and on chemotherapy, anxiety, hyperlipidemia, hypertension who presented to the ED with complaints of vaginal bleeding for the past 2 days. Patient
was having significant bleeding via the vaginal collateral with associated abdominal pressure. She was recommended by her primary oncologist whom she consulted via telemedicine to go to the ER. Patient's hemoglobin was trended and did not require
transfusion. No acute intervention was to be performed to stop the bleeding surgically. Possible causes of symptoms was tumor invasion causing bleeding which would require inpatient radiation but patient would require higher level of care. New
transfer, and was accepted by Dr. Valenzuela ([facility]). She also had bilateral hydronephrosis and UTI. Patient did not want measures as stated before. and family knew the option of palliative radiation. Patient remained with persistent pain,
and to make patient comfortable, it was decided to make her comfortable with comfort measures starting with medications intravenously. She was started on comfort care on 02/19/2025. Morphine was initially started however the pain was not relieved,
and was transitioned to Dilaudid infusion. Patient was also given Valium, Haldol and antinausea medications as needed. was pronounced on 02/27/2025 at 1:22 PM.
Important imaging findings :
CT abdomen pelvis 02/18/25: Large complex solid and cystic mass in the left lateral and posterior pelvis in keeping with the provided history of ovarian/peritoneal cancer. Complex examination and direct correlation with the patient's previous outside
imaging is recommended. The mass appears to directly invade the urinary bladder and rectum. Bilateral hydronephrosis, left greater than right, with malignant soft tissue in the pelvis obstructing the bilateral ureters. Other calcified soft tissue
nodules in the anterior lower abdomen/pelvis and in the right upper quadrant abdominal wall probably representing metastatic implants.
Renal ultrasound 02/19/2025: Mild bilateral renal collecting system dilatation. If there is a concern for obstructive uropathy, suggest Nuclear medicine Renal scan with Lasix. Simple bilateral renal cysts. Left true pelvic mass.
Discharge Plan
-
Patient Disposition:
Date/Time
Date/Time: 02/27/25 13:22
Discharge Date and Time
Discharge Date/Time: 02/27/25 13:22
Print Language: WELSH
== END 2025-02-27 13:22 | disposition expired | DRG 951 ==
LOC: 2 NORTH 12:18
PROVIDERS: ADMITTING PHYSICIAN Hospitalist; ATTENDING PHYSICIAN Internal Medicine
DX: Z51.5 Encounter for palliative care (principal); C56.9 Malignant neoplasm of unspecified ovary; C78.1 Secondary malignant neoplasm of mediastinum; C78.6 Secondary malignant neoplasm of retroperitoneum and peritoneum; D62 Acute posthemorrhagic anemia; N13.6 Pyonephrosis; Z66 Do not resuscitate; D64.81 Anemia due to antineoplastic chemotherapy; E78.5 Hyperlipidemia, unspecified; E87.6 Hypokalemia; F41.9 Anxiety disorder, unspecified; I10 Essential (primary) hypertension; K58.9 Irritable bowel syndrome, unspecified; M79.7 Fibromyalgia; N28.1 Cyst of kidney, acquired; N93.9 Abnormal uterine and vaginal bleeding, unspecified; R13.10 Dysphagia, unspecified; R63.6 Underweight; T45.1X5A Adverse effect of antineoplastic and immunosuppressive drugs, initial encounter; G89.3 Neoplasm related pain (acute) (chronic)